=== PATIENT | male | born 1955 | race Caucasian/White ===

== ENCOUNTER 2025-06-06 14:07 | Inpatient (IN) ==
[2025-06-06 14:47] LABS: HCT - HEMATOCRIT 34.9 % (42.0-52.0); HGB - HEMOGLOBIN 11.3 g/dL (14.0-18.0); MEAN PLATELET VOLUME 8.7 fL (7.4-11.4); NRBC ABSOLUTE COUNT (AUTO) 0.00 x10^3/uL; NUCLEATED RED BLOOD CELLS AUTO 0.0 /100WBC; PLT - PLATELET COUNT 191 10^3/uL (130-450); RED CELL DISTRIBUTION WIDTH 14.0 % (12.0-15.0)
[2025-06-06 14:59] LABS: ALT ALANINE AMINOTRANSFERASE 12.0 IU/L (10-60); AST ASPARTATE AMINOTRANSFERASE 13.0 IU/L (10-42); BUN - BLOOD UREA NITROGEN 60.0 mg/dL (6-20); CARBON DIOXIDE - CO2 26.0 mmol/L (21-32); CREATININE 1.7 mg/dL (0.6-1.3); GFR - MDRD 40.0 (>89)
--- NOTE | 2025-06-06 15:27 | ED Physician Documentation ---
PD HPI SKIN Stated complaint Stated Complaint: LEG PX Chief complaint Chief Complaint: Ext Problem Additional information Additional information: 70-year-old male with type 2 diabetes and chronic foot ulcers presents to emergency department as he was told to by the wound care physician. Patient lives at [facility] and there is concerns about worsening kidney injury and kidney failure as well as different resistances to antibiotics and was told to come to ER for admission for IV antibiotics and management of GEOVANNI. Meds/Allgy Home Medications Ambulatory Orders Medication Instructions Recorded Confirmed methadone 5 mg tablet 5 mg PO TID 03/20/25 5 oxycodone 5 mg tablet 5 mg PO TID 03/20/25 5 gabapentin 800 mg tablet 800 mg PO TID 04/03/2506/06 pravastatin 20 mg tablet 20 mg PO DAILY PM 04/03/25 1 08/07/24 risperidone 1 mg tablet 1 mg PO BID 04/03/25 5 tamsulosin 0.4 mg capsule 0.8 mg PO HS 04/03/25 bupropion HCl 75 mg tablet 150 mg PO TID Depression/To bacco 05/04/25 06/06/25 cessation/Dependence ketoconazole 2 % shampoo 1 applic topical .2 times pe r week 05/28/25 06/06/25 melatonin 5 mg tablet 5 mg PO HS 06/01/25 06/06/25 acetaminophen 325 mg tablet 650 mg PO Q4H PRN pain 06/06/25 albuterol sulfate 90 mcg/actuation 2 puff inhalation Q 4H PRN 06/06/25 06/06/25 aerosol inhaler shortness of breath or wheez ing cyclobenzaprine 10 mg tablet 10 mg PO TID PRN muscle s pasm 06/06/25 06/06/25 diclofenac sodium 1 % topical gel 2 g topical TID 05/1606/06/25 (Arthritis Pain (diclofenac)) hydrocortisone 1 % topical cream 1 applic topical BID 06/06/25 06/06/25 ketoconazole 2 % topical cream 1 applic topical DAILY PRN skin 06/06/25 06/06/25 irritation loperamide 2 mg capsule 2 mg PO QID PRN loose stool 06/06/25 06/06/25 methadone 5 mg tablet 5 mg PO DAILY PRN pain 06/0606/06/25 naloxone 4 mg/actuation nasal 4 mg intranasal Q2M PRN opioid 06/06/25 06/06/25 spray (Narcan) overdose oxycodone 5 mg tablet 5 mg PO DAILY PRN pain 06/0606/06/25 promethazine 25 mg tablet 25 mg PO Q4H PRN nausea and 06/06/25 06/06/25 vomiting ciprofloxacin HCl 500 mg tablet 500 mg PO BID 5 days # 10 tabs 06/08/25 Allergies Allergies Allergy/AdvReac Type Severity Reaction Status Date / Time diphtheria,pertussis Allergy Severe Unknown Verified 06/06/25 14:19 (acellular),te (From Boostrix Tdap) clonidine Allergy Intermediate Unknown Verified 06/06/25 14:19 PFSH Active Problems All Active Problems (Updated 06/09/25 @ 00:01 by ) Pseudomonas aeruginosa infection (Acute) Non-pressure chronic ulcer of other part of right foot limited to breakdown of skin (Acute) Non-pressure chronic ulcer of other part of right lower leg limited to breakdown of skin (Acute) Non-pressure chronic ulcer of other part of left lower leg limited to breakdown of skin (Acute) Irritant contact dermatitis due to friction or contact with body fluids, unspecified (Acute) Venous insufficiency (chronic) (peripheral) (Acute) Cellulitis of right lower limb (Acute) Cellulitis of foot, right (Acute) History of stroke (Acute) Chronic pain (Acute) Tobacco dependence (Acute) Heart murmur (Acute) Wound swab culture positive (Acute) Stasis dermatitis of both legs (Acute) Hypertension (Chronic) Depression with anxiety (Acute) Left leg swelling (Acute) Lower extremity edema (Acute) Elevated blood pressure reading (Acute) Encounter for wound re-check (Acute) Medical History Medical History Benzodiazepine abuse in remission Social History Social History Smoking Status: Current every day smoker How many cigarettes a day do you smoke? (20 cigarettes=1 Pk): 10 Second hand tobacco smoke exposure: Yes Do you dip or chew tobacco?: No Do you vape?: No Patient requests smoking cessation consult: No Initiate information on smoking cessation: No Living arrangement: At home and custodial Marital Status: Single Living Condition: Alone Support Person: No Physical Activity: None Level: Independent Home Mobility Equipment: Cane and Walker Do you feel safe in your home environment?: Yes (lives in an assisted living facility) History of physical, verbal, emotional, or financial abuse?: No ETOH Use: None Substance Use: cannabis (any form) POLST Patient has POLST: No Exam Exam Vital Signs: Vital Signs x48h Temp Pulse Resp BP Pulse Ox 06/06/25 14:14 36.5 C 65 18 104/40 L 97 Constitutional normal general appearance, no apparent distress, abnormal body habitus (obese), no limitations and alert HENMT normocephalic and head/scalp atraumatic Chest inspection of chest normal and palpation of chest normal Respiratory breath sounds equal bilaterally and normal respiratory effort Cardiovascular normal heart rate noted Gastrointestinal abdomen normal to inspection Extremities bilateral lower exteremity foot ulcers Results Vitals Vitals: Oxygen O2 Source Room air Labs Labs: Laboratory Tests 06/06/25 06/06/25 06/07/25 14:40 18:50 01:58 WBC 4.9 RBC 3.95 L Hgb 11.3 L Hct 34.9 L MCV 88.4 MCH 28.6 MCHC 32.4 RDW 14.0 Plt Count 191 MPV 8.7 Neut # (Auto) 3.6 Lymph # (Auto) 0.7 L [place] # (Auto) 0.3 Eos # (Auto) 0.2 Baso # (Auto) 0.0 Absolute Nucleated RBC 0.00 Nucleated RBC % 0.0 Sodium 135 134 L Potassium 5.4 H 5.2 H Chloride 105 105 Carbon Dioxide 26 25 Anion Gap 4.0 L 4.0 L BUN 60 H 59 H Creatinine 1.7 H 1.7 H Estimated GFR (MDRD) 40 L 40 L Glucose 103 155 H Calcium 9.4 9.2 Phosphorus Magnesium Total Bilirubin 0.4 AST 13 ALT 12 Alkaline Phosphatase 82 Total Protein 6.3 L Albumin 3.4 Globulin 2.9 Albumin/Globulin Ratio 1.2 Urine Creatinine 60.3 Urine Sodium 83.2 06/07/25 04:55 WBC 4.6 L RBC 3.87 L Hgb 10.8 L Hct 34.3 L MCV 88.6 MCH 27.9 MCHC 31.5 L RDW 13.9 Plt Count 178 MPV 9.0 Neut # (Auto) Lymph # (Auto) [place] # (Auto) Eos # (Auto) Baso # (Auto) Absolute Nucleated RBC Nucleated RBC % Sodium 134 L Potassium 4.9 H Chloride 105 Carbon Dioxide 23 Anion Gap 6.0 BUN 50 H Creatinine 1.6 H Estimated GFR (MDRD) 43 L Glucose 114 H Calcium 9.2 Phosphorus 3.3 Magnesium 2.1 Total Bilirubin AST ALT Alkaline Phosphatase Total Protein Albumin Globulin Albumin/Globulin Ratio Urine Creatinine Urine Sodium PD Medical Decision Making ED course ED course: 70-year-old male comes into the emergency department on the advice of Dr. Bryan wound care physician. Patient has been started on Lasix but was told to discontinue it given his worsening kidney injury but unfortunately did not stop entirely taking it. He has also recently had a prescription of Bactrim also worsening potential kidney injury. Patient advised to come in for management of his acute kidney injury as well as his chronic lower extremity wound infections that are growing Pseudomonas. He is agreeable to be admitted I spoke with the hospitalist who is also agreeable to admit the patient. Discharge Plan Discharge Patient Disposition: ED Place in Observation Condition: Stable Clinical Impression: Pseudomonas aeruginosa infection, GEOVANNI (acute kidney injury) Interventions: ED Admission Assessment Last Done: 06/06/25 16:21 ED Transfer Assessment Last Done: 06/06/25 16:20 Vitals documented within 30 minutes of discharge?: Yes
[2025-06-06] MEDS: ACETAMINOPHEN 325 MG TABLET PO STA (15:59)
[2025-06-06] MEDS: oxyCODONE 5 MG TABLET PO STA (16:00)
--- NOTE | 2025-06-06 16:03 | HISTORY & PHYSICAL EXAMINATION ---
Chief Complaint Chief Complaint Chief Complaint: Sent in per request of wound care doctor History of Present Illness Admitted From Admitted From:: Home History Obtained From Records Reviewed: EMR History obtained from: Patient Exam Limitations: None History of Present Illness HPI Comment/Other: Patient is a 70-year-old male with a history of chronic venous insufficiency, chronic venous ulcers who presents after being instructed by his wound care doctor to go to the emergency room. His notes were reviewedpatient has chronic venous stasis with severe bilateral lower extremity edema and venous stasis dermatitis, currently exacerbated with active serous drainage. He has secondary cellulitis of the right lower extremity, and a plantar ulceration with active drainage. His wound culture came back positive for Pseudomonas aeruginosa. Initially, he was discharged home on Bactrim, and had told to hold his hydrochlorothiazide and Lasix. His assisted living did not hold his Lasix. Upon recheck of his creatinine, it was elevated to 1.9. His baseline is 1.0. As such, his wound care doctor recommended admission to the ER for IV antibiotics and close monitoring of renal function. At this time, patient does endorse some pain in his bilateral lower extremities, which she states is chronic. For this, he takes methadone and oxycodone. He denies any fevers or chills or shortness of breath. He states his blood pressure is always low; outpatient records indicate blood pressures ranging from 89/49 to 109/58. He denies feeling dizziness or lightheadedness. In the ER, he was vitally stableblood pressure was 104/40, heart rate was 65, respiratory rate was 18, he was saturating 97% on room air, and was afebrile. Lab work was reviewedhe has a normal white count. Creatinine is now 1.7. Again, his baseline is 1.1. X-ray of the foot was completed 05/28 which showed no acute bony abnormality. Wound culture was reviewed and it did show Pseudomonas aeruginosa, which is pansensitive. Patient was admitted under observation for acute kidney injury, and started on cefepime for Pseudomonas infection. Likely, he will be discharged home on ciprofloxacin. Past medical history includes chronic venous insufficiency, hypertension, known systolic heart murmur, depression, history of CVA without any residual deficits. Medications include amlodipine, bupropion, gabapentin, hydrochlorothiazide, lisinopril, methadone, metoprolol, oxycodone, pravastatin, Risperdal, tamsulosin. He has no known drug allergies to medications. He denies any alcohol use. He currently smokes half a pack a day. He did not want a nicotine patch. He occasionally eats edible marijuana Gummies. He lives by himself. He would like to be full code. Meds/Allgy Home Medications Ambulatory Orders Medication Instructions Recorded Confirmed methadone 5 mg tablet 5 mg PO Q8H 03/20/25 5 oxycodone 5 mg tablet 5 mg PO TID 03/20/25 5 amlodipine 10 mg tablet 10 mg PO DAILY 04/03/2505/16 gabapentin 800 mg tablet 800 mg PO TID 04/03/2506/06 metoprolol succinate 50 mg 50 mg PO DAILY 04/03/25 tablet,extended release 24 hr pravastatin 20 mg tablet 20 mg PO DAILY PM 04/03/25 1 08/07/24 risperidone 1 mg tablet 1 mg PO BID 04/03/25 5 tamsulosin 0.4 mg capsule 0.8 mg PO Q24H 04/03/2505/16 bupropion HCl 75 mg tablet 150 mg PO TID Depression/To bacco 05/04/25 06/06/25 cessation/Dependence lisinopril 40 mg tablet 40 mg PO QDAY Hypertension 1 07/04/24 06/06/25 hydrochlorothiazide 12.5 mg capsule 12.5 mg PO DAILY 1 07/29/24 06/06/25 ketoconazole 2 % shampoo 1 applic topical .2 times pe r week 05/28/25 06/06/25 aspirin 325 mg tablet 325 mg PO DAILY 06/01/25 melatonin 5 mg tablet 5 mg PO HS 06/01/25 06/06/25 acetaminophen 325 mg tablet 650 mg PO Q4H PRN pain 06/06/25 albuterol sulfate 90 mcg/actuation 2 puff inhalation Q 4H PRN 06/06/25 06/06/25 aerosol inhaler shortness of breath or wheez ing cyclobenzaprine 10 mg tablet 10 mg PO TID PRN muscle s pasm 06/06/25 06/06/25 diclofenac sodium 1 % topical gel 2 g topical TID 05/1606/06/25 (Arthritis Pain (diclofenac)) hydrocortisone 2.5 % topical cream 1 applic topical BI D 06/06/25 06/06/25 ibuprofen 800 mg tablet (IBU) 800 mg PO Q6H PRN pain 1 08/07/24 06/06/25 loperamide 2 mg capsule 2 mg PO QID PRN loose stool 06/06/25 06/06/25 methadone 5 mg tablet 5 mg PO DAILY PRN pain 06/0606/06/25 naloxone 4 mg/actuation nasal 4 mg intranasal Q2M resp onse 06/06/25 06/06/25 spray (Narcan) oxycodone 5 mg tablet 5 mg PO DAILY PRN pain 06/0606/06/25 promethazine 25 mg tablet 25 mg PO Q4H PRN nausea and 06/06/25 06/06/25 vomiting Allergies Allergies Allergy/AdvReac Type Severity Reaction Status Date / Time diphtheria,pertussis Allergy Severe Unknown Verified 06/06/25 14:19 (acellular),te (From Boostrix Tdap) clonidine Allergy Intermediate Unknown Verified 06/06/25 14:19 PFSH Active Problems All Active Problems GEOVANNI (acute kidney injury) (Acute) Pseudomonas aeruginosa infection (Acute) Non-pressure chronic ulcer of other part of right foot limited to breakdown of skin (Acute) Non-pressure chronic ulcer of other part of right lower leg limited to breakdown of skin (Acute) Non-pressure chronic ulcer of other part of left lower leg limited to breakdown of skin (Acute) Irritant contact dermatitis due to friction or contact with body fluids, unspecified (Acute) Venous insufficiency (chronic) (peripheral) (Acute) Cellulitis of right lower limb (Acute) Cellulitis of foot, right (Acute) History of stroke (Acute) Chronic pain (Acute) Tobacco dependence (Acute) Heart murmur (Acute) Wound swab culture positive (Acute) Stasis dermatitis of both legs (Acute) Hypertension (Chronic) Depression with anxiety (Acute) Left leg swelling (Acute) Lower extremity edema (Acute) Elevated blood pressure reading (Acute) Encounter for wound re-check (Acute) Medical History Medical History Benzodiazepine abuse in remission Social History Social History Smoking Status: Current every day smoker How many cigarettes a day do you smoke? (20 cigarettes=1 Pk): 10 Second hand tobacco smoke exposure: Yes Do you dip or chew tobacco?: No Do you vape?: No Patient requests smoking cessation consult: No Initiate information on smoking cessation: No Living arrangement: At home and intermediate Marital Status: Single Living Condition: Alone Support Person: No Physical Activity: None Level: Independent Do you feel safe in your home environment?: Yes (lives in an assisted living facility) History of physical, verbal, emotional, or financial abuse?: No ETOH Use: None Substance Use: cannabis (any form) POLST Patient has POLST: No POLST on file?: Yes POLST CPR Status: Attempt Resuscitation (CPR) Level of Medical Intervention: Full Treatment Review of Systems Constitutional Denies: Fatigue, Fever, Chills, Malaise or Weakness Eyes Denies: Pain, Irritation, Blurry vision, Vision loss or Diplopia Ears, nose, mouth, and throat Denies: Ear pain, Hearing loss, Tinnitus, Nose bleeds or Nasal discharge Cardiovascular Denies: Irregular heart rate, chest pain, palpitations, edema, Syncope or shortness of breath with exertion Respiratory Denies: Shortness of breath, Cough or Sputum production Gastrointestinal Denies: Abdominal pain, Abdominal distention, Nausea, Vomiting, Heartburn, Diarrhea or Constipation Genitourinary Denies: Painful urination Musculoskeletal Denies: Back pain, Extremity pain, Extremity swelling or Joint pain Integumentary/Breast Reports: Redness, Skin pain, Skin tenderness, Skin swelling, Sores and Changing lesion; Denies: Rash, Itching or Dryness Neurological Denies: Headache, General weakness, Weakness in extremities, Numbness in extremities, Abnormal gait or Dizziness Psychiatric Reports: Depression; Denies: Anxiety, Mood swings or Panic attacks Endocrine Denies: Excessive urination, Excessive thirst or Fatigue Hematologic/Lymphatic Denies: Anemia, Easy bruising or Easy bleeding Allergic/Immunologic Denies: Hives Prior Level of Functionality: Independent of ADLs. Exam Exam Vital Signs: Vital Signs x48h Temp Pulse Pulse Resp BP BP Pulse Ox 06/06/25 16:20 97.7 F 71 21 104/53 L 98 06/06/25 16:20 98.1 F 88 18 103/45 L 97 06/06/25 14:14 97.7 F 65 18 104/40 L 97 Constitutional normal general appearance, no apparent distress, abnormal body habitus (overweight) and no limitations HENMT normocephalic, head/scalp atraumatic and hearing grossly normal bilaterally Eyes PERRL, EOMs intact bilaterally and conjunctivae normal Neck/C-Spine visual inspection normal, trachea midline and cervical spine nontender Chest inspection of chest normal Respiratory breath sounds equal bilaterally, normal respiratory effort, clear to auscultation bilaterally, no wheezes, no rales and no retractions Cardiovascular normal heart rate noted, regular rhythm noted, no gallop, no rub and murmur noted (systolic) Gastrointestinal abdomen normal to inspection, abdomen soft to palpation, nontender to palpation and normoactive bowel sounds Genitourinary no CVA tenderness and bladder normal to palpation Back/Pelvis spine normal to inspection, no thoracic spine tenderness and no lumbar spine tenderness Neurology no movement abnormality noted and no focal motor deficit noted Psychiatry mental status grossly normal, oriented x3, thought process normal, cooperative and affect normal Skin Patient has bilateral hyperpigmentation changes noted up to calf. 2+ pitting edema noted as well. Bilateral legs with skin breakdown, with serous drainage noted. Conclusion/Plan Problem List (1) Non-pressure chronic ulcer of other part of right lower leg limited to breakdown of skin: (2) Pseudomonas aeruginosa infection: Plan: The following is the plan for the above two assessments: Dr. Alvarado, wound care doctor's notes reviewed. These indicate patient has chronic venous stasis with severe bilateral lower extremity edema and venous stasis dermatitis, currently exacerbated with active serous drainage. He has secondary cellulitis of the right lower extremity, and a plantar ulceration with active drainage. His wound culture came back positive for Pseudomonas aeruginosa. Initially, he was discharged home on Bactrim, and had told to hold his hydrochlorothiazide and Lasix. His assisted living did not hold his Lasix. Upon recheck of his creatinine, it was elevated to 1.9. His baseline is 1.0. As such, recommended admission to the ER for IV antibiotics and close monitoring of renal function. Continue cefepime at this time. Continue to trend creatinine. (3) GEOVANNI (acute kidney injury): Plan: Likely intrinsic acute kidney injury secondary to combination of Bactrim, Lasix and hydrochlorothiazide. Serum creatinine, electrolytes ordered, pending. If no further improvement, will order renal ultrasound to ensure no hydronephrosis. (4) Hypertension: Plan: Patient has consistently been hypotensive in the outpatient setting. Hold amlodipine, hydrochlorothiazide, lisinopril, metoprolol, likely indefinitely. Qualifiers: Hypertension type: primary hypertension Qualified Code(s): I10 - Essential (primary) hypertension (5) Depression with anxiety: Plan: Continue buproprion and Risperdal. (6) Chronic pain: Plan: Continue methadone, oxycodone as needed. Qualifiers: Chronic pain type: chronic pain syndrome Qualified Code(s): G89.4 - Chronic pain syndrome Lab Results Lab results reviewed: Yes 06/06/25 14:40 06/06/25 14:40 Diagnostic Imaging Results Diagnostic Imaging Results: positive Final report reviewed Core Measures Anticipated LOS I expect patient to be DC'd or transferred within 96 hours.: Yes Issues Hospital Issues and Management Plan: None anticipated. DVT/VTE - Prophylaxis VTE/DVT Device ordered at admit?: No VTE/DVT Prophylaxis med ordered at admit?: Yes Stroke - Rehab Assessment Rehab services assessment to be ordered?: No Not Ordered - Medical Reason: Not indicated AMI - Statin at Admit Aspirin Prescribed on Admit: No Not Ordered - Medical Reason: Not indicated
[2025-06-06] MEDS: CEFEPIME 2 GM VIAL IVP SCH (16:10)
[2025-06-06] MEDS ORDERED: ONDANSETRON ODT 4 MG TABLET TL PRN (16:15)
--- NOTE | 2025-06-06 18:40 | PHARMACY PROGRESS NOTE ---
Best Possible Medication History Admit Date and Time: 06/06/25 1548 Home Medications Medication Instructions Recorded Confirmed Type methadone 5 mg tablet 5 mg PO TID 03/20/25 5 History oxycodone 5 mg tablet 5 mg PO TID 03/20/25 5 History amlodipine 10 mg tablet 10 mg PO DAILY 04/03/2505/16 History gabapentin 800 mg tablet 800 mg PO TID 04/03/2506/06 History metoprolol succinate 50 mg 50 mg PO DAILY 04/03/25 History tablet,extended release 24 hr pravastatin 20 mg tablet 20 mg PO DAILY PM 04/03/25 1 08/07/24 History risperidone 1 mg tablet 1 mg PO BID 04/03/25 5 History tamsulosin 0.4 mg capsule 0.8 mg PO HS 04/03/25 History bupropion HCl 75 mg tablet 150 mg PO TID Depression/To bacco 05/04/25 06/06/25 History cessation/Dependence lisinopril 40 mg tablet 40 mg PO DAILY Hypertension 05/04/25 06/06/25 History hydrochlorothiazide 12.5 mg capsule 12.5 mg PO DAILY 1 07/29/24 06/06/25 History ketoconazole 2 % shampoo 1 applic topical .2 times pe r week 05/28/25 06/06/25 History melatonin 5 mg tablet 5 mg PO HS 06/01/25 06/06/25 History acetaminophen 325 mg tablet 650 mg PO Q4H PRN pain 06/06/25 History albuterol sulfate 90 mcg/actuation 2 puff inhalation Q 4H PRN 06/06/25 06/06/25 History aerosol inhaler shortness of breath or wheez ing cyclobenzaprine 10 mg tablet 10 mg PO TID PRN muscle s pasm 06/06/25 06/06/25 History diclofenac sodium 1 % topical gel 2 g topical TID 05/1606/06/25 History (Arthritis Pain (diclofenac)) hydrocortisone 2.5 % topical cream 1 applic topical BI D 06/06/25 06/06/25 History ibuprofen 800 mg tablet (IBU) 800 mg PO Q6H PRN pain 1 08/07/24 06/06/25 History ketoconazole 2 % topical cream 1 applic topical DAILY PRN skin 06/06/25 06/06/25 History irritation loperamide 2 mg capsule 2 mg PO QID PRN loose stool 06/06/25 06/06/25 History methadone 5 mg tablet 5 mg PO DAILY PRN pain 06/0606/06/25 History naloxone 4 mg/actuation nasal 4 mg intranasal Q2M PRN opioid 06/06/25 06/06/25 History spray (Narcan) overdose oxycodone 5 mg tablet 5 mg PO DAILY PRN pain 06/0606/06/25 History promethazine 25 mg tablet 25 mg PO Q4H PRN nausea and 06/06/25 06/06/25 History vomiting Processed by: Pharmacy Medications reviewed in ED?: No Medication History completed: Yes Patient Interview: Pt unable to participate Secondary Source(s): Facility MAR as ONLY source (Medication list from [facility]) [facility] Statement: As the person ultimately responsible for medication therapy, providers are able to order a medication from an existing home medication list in [facility] via the "Reconcile Routine" prior to Confirmation of that medication by customer support technician. Such practice is discouraged except when the physician, in their clinical judgment, deems that a medical need exists for a medication without regard to previous use.
[2025-06-06 19:21] LABS: BUN - BLOOD UREA NITROGEN 59.0 mg/dL (6-20); CARBON DIOXIDE - CO2 25.0 mmol/L (21-32); CREATININE 1.7 mg/dL (0.6-1.3); GFR - MDRD 40.0 (>89)
[2025-06-06] MEDS: oxyCODONE 5 MG TABLET PO SCH (20:21)
[2025-06-06] MEDS: GABAPENTIN 400 MG CAPSULE PO SCH (20:22)
[2025-06-06] MEDS: METHADONE 5 MG TABLET PO SCH (20:22)
[2025-06-06] MEDS: HYDROCORTISONE 1% CREAM 28 GM TUBE TOP SCH (20:51)
[2025-06-06] MEDS: MELATONIN 3 MG TABLET PO SCH (20:51)
[2025-06-06] MEDS: PRAVASTATIN 10 MG TABLET PO SCH (20:52)
[2025-06-06] MEDS: HEPARIN 5,000 UNIT/ML VIAL SUBQ SCH (20:52)
[2025-06-06] MEDS: TAMSULOSIN 0.4 MG CAPSULE PO SCH (20:52)
[2025-06-06] MEDS: SODIUM CHLORIDE FLUSH 0.9% 10 ML SYRINGE IVP SCH (20:55)
[2025-06-07] MEDS: SODIUM CHLORIDE FLUSH 0.9% 10 ML SYRINGE IVP PRN (04:14)
[2025-06-07 05:55] LABS: HCT - HEMATOCRIT 34.3 % (42.0-52.0); HGB - HEMOGLOBIN 10.8 g/dL (14.0-18.0); MEAN PLATELET VOLUME 9.0 fL (7.4-11.4); PLT - PLATELET COUNT 178.0 10^3/uL (130-450); RED CELL DISTRIBUTION WIDTH 13.9 % (12.0-15.0)
[2025-06-07 06:12] LABS: BUN - BLOOD UREA NITROGEN 50.0 mg/dL (6-20); CARBON DIOXIDE - CO2 23.0 mmol/L (21-32); CREATININE 1.6 mg/dL (0.6-1.3); GFR - MDRD 43.0 (>89); PHOSPHORUS 3.3 mg/dL (2.5-5.0)
--- NOTE | 2025-06-07 08:31 | PROVIDER PROGRESS NOTE ---
Subjective Subjective Subjective: Today, patient is doing well. He did not get much sleep last night. However, he states he usually only sleeps 3 to 4 hours a night anyways. He is having some pain in his bilateral lower legs, but it is relieved with oxycodone and methadone, his home doses. He denies any fevers or chills. He is eating and drinking well. Current Medications Current Medications Current Medications: Current Medications Generic Name Dose Route Start Last Admin Trade Name Freq PRN Reason Stop Dose Admin Acetaminophen 650 mg 06/06/25 16:15 Acetaminophen 325 Mg Tablet PO Q4HR PRN Pain 1 to 4, or Fever Bupropion HCl 150 mg 06/06/25 20:00 06/06/25 20:22 Bupropion Sr 150 Mg Tablet PO 150 mg 0800,1199,1999 YOANA Administration Cefepime HCl 2 gm 06/06/25 16:00 06/07/25 04:13 Cefepime 2 Gm Vial IVP 2 gm Q12H YOANA Administration Gabapentin 800 mg 06/06/25 20:00 06/06/25 20:22 Gabapentin 400 Mg Capsule PO 800 mg 0800,1399,1999 YOANA Administration Heparin Sodium (Porcine) 5,000 unit 06/06/25 21:00 06/06/25 20:52 Heparin 5,000 Unit/Ml Vial SUBQ 5,000 unit BID YOANA Administration Hydrocortisone 1 applic 06/06/25 21:00 06/06/25 20:56 Hydrocortisone 1% Cream 28 Gm Tube TOP Not Given BID YOANA Lactated Ringer's 250 mls @ 999 mls/hr 06/07/25 08:30 Lr IV 06/07/25 08:45 ONCE ONE Melatonin 6 mg 06/06/25 21:00 06/06/25 20:51 Melatonin 3 Mg Tablet PO 6 mg QPM YOANA Administration Methadone HCl 5 mg 06/06/25 20:00 06/06/25 20:22 Methadone 5 Mg Tablet PO 5 mg 0800,1399,1999 [facility] Administration Ondansetron HCl 4 mg 06/06/25 16:15 Ondansetron Odt 4 Mg Tablet TL Q6HR PRN Nausea / Vomiting Oxycodone HCl 5 mg 06/06/25 20:00 06/06/25 20:21 Oxycodone 5 Mg Tablet PO 5 mg 0800,1399,1999 YOANA Administration Pravastatin Sodium 20 mg 06/06/25 21:00 06/06/25 20:52 Pravastatin 10 Mg Tablet PO 20 mg HS YOANA Administration Risperidone 1 mg 06/06/25 21:00 06/06/25 20:51 Risperidone 1 Mg Tablet PO 1 mg BID YOANA Administration Sodium Chloride 10 ml 06/06/25 16:15 06/07/25 04:14 Sodium Chloride Flush 0.9% 10 Ml Syringe IVP 10 ml PRN PRN Administration NEEDED PER PROVIDER ORDERS Sodium Chloride 10 ml 06/06/25 17:00 06/07/25 01:34 Sodium Chloride Flush 0.9% 10 Ml Syringe IVP 10 ml 0100,0900,1700 YOANA Administration Sterile Water 30 ml 06/06/25 16:00 06/07/25 04:13 Water For Injection,Sterile 10 Ml Vial MC 30 ml Q12H YOANA Administration Tamsulosin HCl 0.8 mg 06/06/25 21:00 06/06/25 20:52 Tamsulosin 0.4 Mg Capsule PO 0.8 mg HS YOANA Administration Objective Vital Signs/Intake & Output Reviewed Vital Signs: Yes Vital Signs: Vital Signs x48h Temp Pulse Resp BP Pulse Ox 06/07/25 07:57 97.7 F 76 16 117/54 L 97 06/07/25 03:52 98.1 F 68 20 111/56 L 94 Intake & Output: Intake & Output 06/04/25 06/05/25 06/06/25 06/07/25 23:59 23:59 23:59 23:59 Intake Total 640 / 640 Output Total 100 / 100 Balance 640 / 640 -100 / -100 Weight (kg) 143 kg Objective Comments/Other: Constitutional normal general appearance, no apparent distress, abnormal body habitus (overweight) and no limitations [facility] normocephalic, head/scalp atraumatic and hearing grossly normal bilaterally Eyes PERRL, EOMs intact bilaterally and conjunctivae normal Neck/C-Spine visual inspection normal, trachea midline and cervical spine nontender Chest inspection of chest normal Respiratory breath sounds equal bilaterally, normal respiratory effort, clear to auscultation bilaterally, no wheezes, no rales and no retractions Cardiovascular normal heart rate noted, regular rhythm noted, no gallop, no rub and murmur noted (systolic) Gastrointestinal abdomen normal to inspection, abdomen soft to palpation, nontender to palpation and normoactive bowel sounds Genitourinary no CVA tenderness and bladder normal to palpation Back/Pelvis spine normal to inspection, no thoracic spine tenderness and no lumbar spine tenderness Neurology no movement abnormality noted and no focal motor deficit noted Psychiatry mental status grossly normal, oriented x3, thought process normal, cooperative and affect normal Skin Patient has bilateral hyperpigmentation changes noted up to calf. 2+ pitting edema noted as well. Bilateral legs with skin breakdown, with serous drainage noted. Lab Results 06/07/25 04:55 06/07/25 04:55 Other Labs: Lab Results x24hrs 06/07/25 06/07/25 06/06/25 Range/Units 04:55 01:58 18:50 WBC 4.6 L (4.8-10.8) x10^3/uL RBC 3.87 L (4.70-6.10) 10^6/uL Hgb 10.8 L (14.0-18.0) g/dL Hct 34.3 L (42.0-52.0) % MCV 88.6 (80.0-94.0) fL MCH 27.9 (27.0-31.0) pg MCHC 31.5 L (32.0-36.0) g/dL RDW 13.9 (12.0-15.0) % Plt Count 178 (130-450) 10^3/uL MPV 9.0 (7.4-11.4) fL Neut # (Auto) (1.5-6.6) 10^3/uL Lymph # (Auto) (1.5-3.5) 10^3/uL Wise # (Auto) (0.0-1.0) 10^3/uL Eos # (Auto) (0.0-0.7) 10^3/uL Baso # (Auto) (0.0-0.1) 10^3/uL Absolute Nucleated RBC x10^3/uL Nucleated RBC % /100WBC Sodium 134 L 134 L (135-145) mmol/L Potassium 4.9 H 5.2 H (3.5-4.5) mmol/L Chloride 105 105 (101-111) mmol/L Carbon Dioxide 23 25 (21-32) mmol/L Anion Gap 6.0 4.0 L (6-13) BUN 50 H 59 H (6-20) mg/dL Creatinine 1.6 H 1.7 H (0.6-1.3) mg/dL Estimated GFR (MDRD) 43 L 40 L (>89) Glucose 114 H 155 H (74-104) mg/dL Calcium 9.2 9.2 (8.5-10.3) mg/dL Phosphorus 3.3 (2.5-5.0) mg/dL Magnesium 2.1 (1.7-2.3) mg/dL Total Bilirubin (0.2-1.0) mg/dL AST (10-42) IU/L ALT (10-60) IU/L Alkaline Phosphatase (42-121) IU/L Total Protein (6.4-8.9) g/dL Albumin (3.2-5.5) g/dL Globulin (2.1-4.2) g/dL Albumin/Globulin Ratio (1.0-2.2) Urine Creatinine 60.3 mg/dL Urine Sodium 83.2 mmol/L 12/23/25 Range/Units 14:40 WBC 4.9 (4.8-10.8) x10^3/uL RBC 3.95 L (4.70-6.10) 10^6/uL Hgb 11.3 L (14.0-18.0) g/dL Hct 34.9 L (42.0-52.0) % MCV 88.4 (80.0-94.0) fL MCH 28.6 (27.0-31.0) pg MCHC 32.4 (32.0-36.0) g/dL RDW 14.0 (12.0-15.0) % Plt Count 191 (130-450) 10^3/uL MPV 8.7 (7.4-11.4) fL Neut # (Auto) 3.6 (1.5-6.6) 10^3/uL Lymph # (Auto) 0.7 L (1.5-3.5) 10^3/uL Wise # (Auto) 0.3 (0.0-1.0) 10^3/uL Eos # (Auto) 0.2 (0.0-0.7) 10^3/uL Baso # (Auto) 0.0 (0.0-0.1) 10^3/uL Absolute Nucleated RBC 0.00 x10^3/uL Nucleated RBC % 0.0 /100WBC Sodium 135 (135-145) mmol/L Potassium 5.4 H (3.5-4.5) mmol/L Chloride 105 (101-111) mmol/L Carbon Dioxide 26 (21-32) mmol/L Anion Gap 4.0 L (6-13) BUN 60 H (6-20) mg/dL Creatinine 1.7 H (0.6-1.3) mg/dL Estimated GFR (MDRD) 40 L (>89) Glucose 103 (74-104) mg/dL Calcium 9.4 (8.5-10.3) mg/dL Phosphorus (2.5-5.0) mg/dL Magnesium (1.7-2.3) mg/dL Total Bilirubin 0.4 (0.2-1.0) mg/dL AST 13 (10-42) IU/L ALT 12 (10-60) IU/L Alkaline Phosphatase 82 (42-121) IU/L Total Protein 6.3 L (6.4-8.9) g/dL Albumin 3.4 (3.2-5.5) g/dL Globulin 2.9 (2.1-4.2) g/dL Albumin/Globulin Ratio 1.2 (1.0-2.2) Urine Creatinine mg/dL Urine Sodium mmol/L Assessment/Plan Problem List (1) Non-pressure chronic ulcer of other part of right lower leg limited to breakdown of skin: (2) Pseudomonas aeruginosa infection: Impression: The following is the plan for the above two assessments: Dr. Alvarado, wound care doctor's notes reviewed. These indicate patient has chronic venous stasis with severe bilateral lower extremity edema and venous stasis dermatitis, currently exacerbated with active serous drainage. He has secondary cellulitis of the right lower extremity, and a plantar ulceration with active drainage. His wound culture came back positive for Pseudomonas aeruginosa. Initially, he was discharged home on Bactrim, and had told to hold his hydrochlorothiazide and Lasix. His assisted living did not hold his Lasix. Upon recheck of his creatinine, it was elevated to 1.9. His baseline is 1.0. As such, recommended admission to the ER for IV antibiotics and close monitoring of renal function. Continue cefepime at this time. Continue to trend creatinine. IV rehydration ordered with gentle IVF boluses. Anticipate discharge 06/08 on oral ciprofloxacin to complete course. (3) GEOVANNI (acute kidney injury): Impression: Improved. Likely intrinsic acute kidney injury secondary to combination of Bactrim, Lasix and hydrochlorothiazide. Serum creatinine, electrolytes ordered, pending. If no further improvement, will order renal ultrasound to ensure no hydronephrosis. (4) Hypertension: Impression: Patient has consistently been hypotensive in the outpatient setting. Hold amlodipine, hydrochlorothiazide, lisinopril, metoprolol, likely indefinitely. Qualifiers: Hypertension type: primary hypertension Qualified Code(s): I10 - Essential (primary) hypertension (5) Depression with anxiety: Impression: Continue buproprion and Risperdal. (6) Chronic pain: Impression: Continue methadone, oxycodone as needed. Qualifiers: Chronic pain type: chronic pain syndrome Qualified Code(s): G89.4 - Chronic pain syndrome
[2025-06-07] MEDS: ACETAMINOPHEN 325 MG TABLET PO PRN (10:11)
[2025-06-07] MEDS: LACTATED RINGERS 250 ML IV ONE (11:07)
[2025-06-08 05:15] VITALS: TEMP 97.7
[2025-06-08 06:02] LABS: HCT - HEMATOCRIT 36.4 % (42.0-52.0); HGB - HEMOGLOBIN 11.8 g/dL (14.0-18.0); MEAN PLATELET VOLUME 8.8 fL (7.4-11.4); PLT - PLATELET COUNT 197.0 10^3/uL (130-450); RED CELL DISTRIBUTION WIDTH 13.9 % (12.0-15.0)
[2025-06-08 06:15] LABS: BUN - BLOOD UREA NITROGEN 41.0 mg/dL (6-20); CARBON DIOXIDE - CO2 22.0 mmol/L (21-32); CREATININE 1.4 mg/dL (0.6-1.3); GFR - MDRD 50.0 (>89)
--- NOTE | 2025-06-08 08:47 | Discharge Summary ---
Discharge Summary Admit Date: 06/06/25 Discharge Date: 06/08/25 Discharging Provider: Dr. Amaya Miranda Primary Care Provider: Teena Curry Code Status: Attempt Resuscitation Discharge [facility] DIAGNOSES Discharge Diagnoses with Status of Each Condition: Nonpressure ulcer right lower leg limited to breakdown of skin, Pseudomonas aeruginosa infection Dr. Alvarado, wound care doctor's notes reviewed. These indicate patient has chronic venous stasis with severe bilateral lower extremity edema and venous stasis dermatitis, currently exacerbated with active serous drainage. He has secondary cellulitis of the right lower extremity, and a plantar ulceration with active drainage. His wound culture came back positive for Pseudomonas aeruginosa. Initially, he was discharged home on Bactrim, and had told to hold his hydrochlorothiazide and Lasix. His assisted living did not hold his Lasix. Upon recheck of his creatinine, it was elevated to 1.9. His baseline is 1.0. As such, recommended admission to the ER for IV antibiotics and close monitoring of renal function. Received 2 days of cefepime. Plan for discharge on oral ciprofloxacin, renally dosed at 500 mg twice a day. Will order 7-day course. He has a wound care appointment tomorrow. AKIresolving. Presented with a creatinine of 1.9, and is improved to 1.4. His baseline is around 1.1. Advised to continue p.o. intake, p.o. hydration at home. Advised to hold hydrochlorothiazide, amlodipine, Lasix, likely indefinitely. Hypertensionpatient has been consistently hypotensive while here, as well as in the outpatient setting. Hold amlodipine, hydrochlorothiazide, Synthroid, Toprol on discharge. Depression with anxietycontinue bupropion and Risperdal. Chronic paincontinue methadone, oxycodone as needed. HPI History of Present Illness: Patient is a 70-year-old male with a history of chronic venous insufficiency, chronic venous ulcers who presents after being instructed by his wound care doctor to go to the emergency room. His notes were reviewedpatient has chronic venous stasis with severe bilateral lower extremity edema and venous stasis dermatitis, currently exacerbated with active serous drainage. He has secondary cellulitis of the right lower extremity, and a plantar ulceration with active drainage. His wound culture came back positive for Pseudomonas aeruginosa. Initially, he was discharged home on Bactrim, and had told to hold his hydrochlorothiazide and Lasix. His assisted living did not hold his Lasix. Upon recheck of his creatinine, it was elevated to 1.9. His baseline is 1.0. As such, his wound care doctor recommended admission to the ER for IV antibiotics and close monitoring of renal function. At this time, patient does endorse some pain in his bilateral lower extremities, which she states is chronic. For this, he takes methadone and oxycodone. He denies any fevers or chills or shortness of breath. He states his blood pressure is always low; outpatient records indicate blood pressures ranging from 89/49 to 109/58. He denies feeling dizziness or lightheadedness. In the ER, he was vitally stableblood pressure was 104/40, heart rate was 65, respiratory rate was 18, he was saturating 97% on room air, and was afebrile. Lab work was reviewedhe has a normal white count. Creatinine is now 1.7. Again, his baseline is 1.1. X-ray of the foot was completed 05/28 which showed no acute bony abnormality. Wound culture was reviewed and it did show Pseudomonas aeruginosa, which is pansensitive. Patient was admitted under observation for acute kidney injury, and started on cefepime for Pseudomonas infection. Likely, he will be discharged home on ciprofloxacin. Past medical history includes chronic venous insufficiency, hypertension, known systolic heart murmur, depression, history of CVA without any residual deficits. Medications include amlodipine, bupropion, gabapentin, hydrochlorothiazide, lisinopril, methadone, metoprolol, oxycodone, pravastatin, Risperdal, tamsulosin. He has no known drug allergies to medications. He denies any alcohol use. He currently smokes half a pack a day. He did not want a nicotine patch. He occasionally eats edible marijuana Gummies. He lives by himself. He would like to be full code. HOSPITAL COURSE Hospital Course: Patient is a 70-year-old male with a history of chronic venous insufficiency, chronic venous ulcers who presents after being instructed by his wound care doctor to go to the emergency room. His notes were reviewedpatient has chronic venous stasis with severe bilateral lower extremity edema and venous stasis dermatitis, currently exacerbated with active serous drainage. He has secondary cellulitis of the right lower extremity, and a plantar ulceration with active drainage. His wound culture came back positive for Pseudomonas aeruginosa. Initially, he was discharged home on Bactrim, and had told to hold his hydrochlorothiazide and Lasix. His assisted living did not hold his Lasix. Upon recheck of his creatinine, it was elevated to 1.9. His baseline is 1.0. As such, his wound care doctor recommended admission to the ER for IV antibiotics and close monitoring of renal function. Received 2 days of cefepime. Plan for discharge on oral ciprofloxacin, renally dosed at 500 mg twice a day. Will order 7-day course. Received gentle IVF rehydration. He has a wound care appointment tomorrow. Advised to continue p.o. intake, p.o. hydration at home. patient has been consistently hypertensive while here, as well as in the outpatient setting. Hold amlodipine, hydrochlorothiazide, Synthroid, Toprol on discharge. He was medically stable for discharge. Needs close follow up with PCP, wound care. ALLERGIES Allergies Allergy/AdvReac Type Severity Reaction Status Date / Time diphtheria,pertussis Allergy Severe Unknown Verified 06/06/25 14:19 (acellular),te (From Boostrix Tdap) clonidine Allergy Intermediate Unknown Verified 06/06/25 14:19 MEDICATIONS Ambulatory Orders Medication Instructions Recorded Confirmed methadone 5 mg tablet 5 mg PO TID 03/20/25 5 oxycodone 5 mg tablet 5 mg PO TID 03/20/25 5 gabapentin 800 mg tablet 800 mg PO TID 04/03/2506/06 pravastatin 20 mg tablet 20 mg PO DAILY PM 04/03/25 1 08/07/24 risperidone 1 mg tablet 1 mg PO BID 04/03/25 5 tamsulosin 0.4 mg capsule 0.8 mg PO HS 04/03/25 bupropion HCl 75 mg tablet 150 mg PO TID Depression/To bacco 05/04/25 06/06/25 cessation/Dependence ketoconazole 2 % shampoo 1 applic topical .2 times pe r week 05/28/25 06/06/25 melatonin 5 mg tablet 5 mg PO HS 06/01/25 06/06/25 acetaminophen 325 mg tablet 650 mg PO Q4H PRN pain 06/06/25 albuterol sulfate 90 mcg/actuation 2 puff inhalation Q 4H PRN 06/06/25 06/06/25 aerosol inhaler shortness of breath or wheez ing cyclobenzaprine 10 mg tablet 10 mg PO TID PRN muscle s pasm 06/06/25 06/06/25 diclofenac sodium 1 % topical gel 2 g topical TID 05/1606/06/25 (Arthritis Pain (diclofenac)) hydrocortisone 1 % topical cream 1 applic topical BID 06/06/25 06/06/25 ketoconazole 2 % topical cream 1 applic topical DAILY PRN skin 06/06/25 06/06/25 irritation loperamide 2 mg capsule 2 mg PO QID PRN loose stool 06/06/25 06/06/25 methadone 5 mg tablet 5 mg PO DAILY PRN pain 06/0606/06/25 naloxone 4 mg/actuation nasal 4 mg intranasal Q2M PRN opioid 06/06/25 06/06/25 spray (Narcan) overdose oxycodone 5 mg tablet 5 mg PO DAILY PRN pain 06/0606/06/25 promethazine 25 mg tablet 25 mg PO Q4H PRN nausea and 06/06/25 06/06/25 vomiting ciprofloxacin HCl 500 mg tablet 500 mg PO BID 5 days # 10 tabs 06/08/25 PHYSICAL EXAM AT DISCHARGE Vital Signs: Vital Signs x48h Temp Pulse Resp BP Pulse Ox 06/08/25 05:11 97.7 F 63 18 125/59 L 94 Objective Comments/Other: Constitutional normal general appearance, no apparent distress, abnormal body habitus (overweight) and no limitations HENMT normocephalic, head/scalp atraumatic and hearing grossly normal bilaterally Eyes PERRL, EOMs intact bilaterally and conjunctivae normal Neck/C-Spine visual inspection normal, trachea midline and cervical spine nontender Chest inspection of chest normal Respiratory breath sounds equal bilaterally, normal respiratory effort, clear to auscultation bilaterally, no wheezes, no rales and no retractions Cardiovascular normal heart rate noted, regular rhythm noted, no gallop, no rub and murmur noted (systolic) Gastrointestinal abdomen normal to inspection, abdomen soft to palpation, nontender to palpation and normoactive bowel sounds Genitourinary no CVA tenderness and bladder normal to palpation Back/Pelvis spine normal to inspection, no thoracic spine tenderness and no lumbar spine tenderness Neurology no movement abnormality noted and no focal motor deficit noted Psychiatry mental status grossly normal, oriented x3, thought process normal, cooperative and affect normal Skin Patient has bilateral hyperpigmentation changes noted up to calf. 2+ pitting edema noted as well. Bilateral legs with skin breakdown, with serous drainage noted. See wound care photos. LABS 06/08/25 05:27 06/08/25 05:27 DIAGNOSTIC IMAGING Diagnostic Imaging Results: Final report reviewed FOLLOW UP Follow Up: Follow up wound care doctor. Follow up PCP. TIME SPENT Time Spent in Discharge (Minutes): 35 Discharge Plan Discharge Patient Disposition: Home, Self Care Condition: Stable Prescriptions: New ciprofloxacin HCl 500 mg tablet 500 mg PO BID 5 Days Qty: 10 0RF Continued melatonin 5 mg tablet 5 mg PO HS ketoconazole 2 % shampoo 1 applic TOPICAL .2 times per week acetaminophen 325 mg tablet 650 mg PO Q4H PRN (Reason: pain) albuterol sulfate 90 mcg/actuation HFA aerosol inhaler 2 puff INHALATION Q4H PRN (Reason: shortness of breath or wheezing) cyclobenzaprine 10 mg tablet 10 mg PO TID PRN (Reason: muscle spasm) loperamide 2 mg capsule 2 mg PO QID PRN (Reason: loose stool) naloxone [Narcan] 4 mg/actuation spray,non-aerosol 4 mg intranasal Q2M PRN (Reason: opioid overdose) Rx Instructions: spray 1 dose into ONE nostril; alternate nostrils w each dose until help arrives promethazine 25 mg tablet 25 mg PO Q4H PRN (Reason: nausea and vomiting) methadone 5 mg tablet 5 mg PO DAILY PRN (Reason: pain) oxycodone 5 mg tablet 5 mg PO DAILY PRN (Reason: pain) diclofenac sodium [Arthritis Pain (diclofenac)] 1 % gel 2 g topical TID Rx Instructions: apply to single elbow, wrist or hand; for hand includes palm/fingers/back of hand ketoconazole 2 % cream 1 applic TOPICAL DAILY PRN (Reason: skin irritation) hydrocortisone 1 % cream 1 applic topical BID Rx Instructions: apply to bilateral forearms twice a day. methadone 5 mg tablet 5 mg PO TID Rx Instructions: 0800,1400,2000 oxycodone 5 mg tablet 5 mg PO TID Rx Instructions: 0800,1400,1999 tamsulosin 0.4 mg capsule 0.8 mg PO HS gabapentin 800 mg tablet 800 mg PO TID pravastatin 20 mg tablet 20 mg PO DAILY PM risperidone 1 mg tablet 1 mg PO BID bupropion HCl 75 mg tablet 150 mg PO TID Discontinued hydrochlorothiazide 12.5 mg capsule 12.5 mg PO DAILY ibuprofen [IBU] 800 mg tablet 800 mg PO Q6H PRN (Reason: pain) metoprolol succinate 50 mg tablet extended release 24 hr 50 mg PO DAILY amlodipine 10 mg tablet 10 mg PO DAILY lisinopril 40 mg tablet 40 mg PO DAILY Activity Restrictions: Activity as Tolerated Diet: Regular Health Concerns: You are being discharged on ciprofloxacin 500 mg (dosed for your kidney injury) by mouth twice daily (every 12 hours) to continue treating the Pseudomonas infection in your foot ulcer. You will continue this for 5 additional days to complete a 7 day course. This course may be extended to 14 days by your wound care doctor. This replaces the IV antibiotic (cefepime) you received in the hospital. - Take your ciprofloxacin exactly as prescribed, even if you feel better. - Duration: Continue for the full course prescribed by your doctor (typically 7- 14 days for skin infections, possibly longer if you have bone involvement). - Timing: Take every 12 hours (for example, 8 AM and 8 PM) - With or without food: May be taken with or without meals, but avoid taking with dairy products or calcium-fortified juices alone - Stay hydrated: Drink plenty of fluids while taking this medication Important Ciprofloxacin Warnings: - Tendon problems: Stop taking ciprofloxacin and contact your doctor immediately if you develop tendon pain, swelling, or rupture (especially Achilles tendon). - Nerve problems: Report any unusual tingling, numbness, or burning sensations. - Avoid excessive sun exposure and use sunscreen - Do not take antacids, iron, zinc, or calcium supplements within 2 hours before or 6 hours after your ciprofloxacin dose Wound Care Instructions Proper wound care is essential for healing your foot ulcer: - Keep the wound clean and dry: Follow the specific dressing instructions provided by your wound care team. Please follow with your wound care doctor, Dr. Alvarado. You already have an appointment scheduled for tomorrow, 06/09. - Daily inspection: Check your foot daily for signs of worsening infection (increased redness, warmth, swelling, drainage, or odor) - Dressing changes: Change dressings as instructed (typically daily or as they become soiled) - Do NOT soak the wound in water - Offloading: Stay off your foot as much as possible - use any special boot, shoe, or crutches/walker as instructed to prevent pressure on the ulcer Signs of Worsening Infection - Call Your Doctor or Go to the ER If: - Fever above 100.4F (38C) or chills - Increased pain, redness, swelling, or warmth around the wound - Foul-smelling drainage or pus from the wound - Red streaks extending from the wound - Nausea, vomiting, or confusion - Blood sugar that is difficult to control Follow-Up Care - Wound clinic appointment: 06/[address] Alvarado at 15:15 (tomorrow) - Do NOT miss your follow-up appointments - your wound will need to be monitored regularly until completely healed - If your infection does not improve after 2-4 weeks of treatment, you may need reevaluation and possibly different antibiotics Additional Important Points - No smoking: Smoking significantly impairs wound healing - Good nutrition: Eat a balanced diet with adequate protein to support healing - Foot protection: Never walk barefoot, even at home - Check your shoes: Inspect shoes daily for foreign objects or rough areas before wearing - Wear clean, dry socks and change them daily Contact your healthcare provider if: - The wound shows no signs of improvement after 1 week - You develop side effects from ciprofloxacin - You have questions about wound care or medications - You run out of dressing supplies As we discussed, your blood pressure has been low here. I would like you to hold all your blood pressure medications on discharge and stop taking them indefinitely, including amlodipine, hydrochlorothiazide, lisinopril. With your acute kidney injury, I would also hold your Motrin, and just used Tylenol for any breakthrough pain for now. Thank you for allowing us to take care of you. We are glad you are feeling better. Print Language: Macedonian Patient Instructions: Cellulitis Dc Stand Alone Forms: PCP List, SBIRT Follow-up Care: Teena Curry ARNP, MSN, [employer] [Primary Care Provider, Family Practice] Vitals documented within 30 minutes of discharge?: Yes
[2025-06-08 13:04] VITALS: BP 118/73; O2SAT 98
== END 2025-06-08 13:05 | disposition home or self-care (01) | DRG 593 ==
LOC: MS2 14:07 → ED 14:07 → MS2 16:20
PROVIDERS: ADMIT Internal Medicine; ATTEND Internal Medicine
DX: F41.8 Other specified anxiety disorders; B96.5 Pseudomonas (aeruginosa) (mallei) (pseudomallei) as the cause of diseases classified elsewhere; F17.210 Nicotine dependence, cigarettes, uncomplicated; R01.1 Cardiac murmur, unspecified; I10 Essential (primary) hypertension; I87.2 Venous insufficiency (chronic) (peripheral); I87.8 Other specified disorders of veins; L97.811 Non-pressure chronic ulcer of other part of right lower leg limited to breakdown of skin; I95.9 Hypotension, unspecified; R60.0 Localized edema; Z86.73 Personal history of transient ischemic attack (TIA), and cerebral infarction without residual deficits; G89.4 Chronic pain syndrome; L03.115 Cellulitis of right lower limb; N17.9 Acute kidney failure, unspecified